=== PATIENT | female | born 1970 | race Caucasian/White ===

== ENCOUNTER 2023-07-20 14:43 | Emergency (ER) | payer OTHER, SELFPAY ==
[2023-07-20 14:48] VITALS: BP 128/73
--- NOTE | 2023-07-20 15:05 | ED.GENMED ---
History of Present Illness
General
Chief Complaint: Rabies
Source: patient
Exam Limitations: none
Time Seen by Provider: 07/20/23 14:53
Nursing documentation reviewed up to this point in time: agreed with
Travel History
Have you had any contact with someone who has COVID-19?: No
Do you have any symptoms of coronavirus? Fever > 100 degrees, chills, cough, shortness of breath, sore throat, loss of taste or smell, muscle aches, or headache?: No
History of Present Illness
History of Present Illness:
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
off with her teeth is requesting rabies immunization 'just in case.' There was no bite or scratch, she simply put her teeth around one of the fingertips of the glove and pulled it off.
Past History
Past History
ED Past Medical History: None
ED Past Surgical History: Gynecological
Social History
Tobacco: Non-smoker
Alcohol: Occasional
Personal: Single
Employment: Employed
Review of Systems
Review of Systems
Allergies reviewed?: Yes
All Other Systems: ROS reviewed and negative except as documented in HPI and ROS
Skin: Reports no symptoms
Phy Exam
Physical Exam
Physical Exam:
PHYSICAL EXAMINATION:
General: no apparent distress, not acutely ill
Neuro: alert and oriented.
Psychiatric: well kept. interactive and cooperative
Musculoskeletal: Moves with ease
Skin: Warm, pink.
Course
Vital Signs
Initial and Last Documented VS:
Initial Vital Signs
Temp Pulse Resp BP Pulse Ox
98.7 F 70 20 128/73 100
07/20/23 14:48 07/20/23 14:48 07/20/23 14:48 07/20/23 14:48 07/20/23 14:48
Last Documented Vital Signs
Temp Pulse Resp BP Pulse Ox
98.7 F 70 20 128/73 100
07/20/23 14:48 07/20/23 14:48 07/20/23 14:48 07/20/23 14:48 07/20/23 14:48
MDM/Problems Addressed
MDM/Problems Addressed:
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
off with her teeth is requesting rabies immunization 'just in case.' There was no bite or scratch, she simply put her teeth around one of the fingertips of the glove and pulled it off.
Explained to patient that rabies immunization is not clinically indicated however since she works at the [employer] it may behoove her to get immunized. She was questioning whether her insurance would pay for it, I told her I had no idea. I
reassured her that she is not at risk at this time for rabies due to this incident.
She is opting to not get immunized at this time and she will call her insurance company tomorrow which is Friday to see if it will be covered.
*Critical Care Note
Total Time (30-74mins, 75-104mins- exclusive of procedures): Not Applicable
ED Attending Note
-
Portions of this chart may have been created with voice recognition software.� Occasional wrong word or��sound alike� substitutions may have occurred due to the inherent limitations of voice recognition software.
Discharge Plan
Departure
Patient Disposition: Home (Routine Discharge)
Date of Disposition: 07/20/23
Time of Disposition: 15:10
Patient with high blood pressure during this ER visit?: No
Condition: Good
Discharge Problem:
Questionable rabies exposure
Activity Restrictions/Additional Instructions:
As we discussed, there is no clinical indication for rabies immunization due to this incident.
You may opt to get immunized anyway since you are working at the [facility].
Call your insurance company if you are concerned about the cost and see if it is covered.
Interventions
Interventions:
*Risk Screen - Suicide Last Done: 07/20/23 15:30
*General Assessment Last Done: 07/20/23 15:30
*Neglect/Abuse Screening Last Done: 07/20/23 15:30
ED- Fall Risk Assessment Last Done: 07/20/23 15:30
*ED COVID-19 Vaccine History Last Done: 07/20/23 15:30
*Nursing Disposition Last Done: 07/20/23 15:30
Discharge Date and Time
Discharge Date/Time: 07/20/23 15:30
Print Language: ARABIC
== END 2023-07-20 15:30 | disposition home or self-care (01) ==
LOC: EMR 14:43
PROVIDERS: EMERGENCY PHYSICIAN Emergency Medicine; FAMILY PHYSICIAN Internal Medicine
DX: Z20.3 Contact with and (suspected) exposure to rabies (principal)
CPT/HCPCS: 99281

== ENCOUNTER → 2023-07-29 06:15 | Outpatient (REF) | payer OTHER, SELFPAY ==
[2023-07-29 09:21] LABS: ALT (SGPT) 13 U/L (0-35); AST (SGOT) 23 U/L (14-36); Albumin 4.5 g/dl (3.5-5.0); Alkaline Phosphatase 59 U/L (38-126); Blood Urea Nitrogen 21 mg/dl (7-17); Calcium 9.8 mg/dl (8.4-10.2); Carbon Dioxide 28 mmol/L (22-30); Chloride 105 mmol/L (98-107); Glucose 89 mg/dl (70-99); Sodium 140 mmol/L (135-145); Total Bilirubin 0.8 mg/dl (0.2-1.3); Total Protein 6.6 g/dl (6.3-8.2); eGFR > 60.00
[2023-07-29 09:28] LABS: Potassium 3.8 mmol/L (3.5-5.1)
[2023-07-29 09:31] LABS: Intact PTH 38.3 pg/ml (13.6-85.8)
[2023-07-29 10:02] LABS: Vitamin D, 25-OH*** 52.6 ng/mL (30-80)
[2023-07-29 10:16] LABS: TSH 1.86 uIU/ml (0.47-4.68)
[2023-07-30 19:58] LABS: CTx 413 pg/mL
== END ==
LOC: HWRAD 06:15
PROVIDERS: ATTENDING PHYSICIAN Internal Medicine Endocrinology, Diabetes & Metabolism; FAMILY PHYSICIAN Internal Medicine
DX: E04.2 Nontoxic multinodular goiter (principal); M81.0 Age-related osteoporosis without current pathological fracture
CPT/HCPCS: 36415; 76536; 80053; 82306; 82523; 83970; 84100; 84443

== ENCOUNTER → 2023-08-07 08:44 | Outpatient (REF) | payer OTHER, SELFPAY ==
[2023-08-07 13:27] LABS: 24 Hour Urine Calcium 243.2 mg/day; 24 Hour Urine Creatinine 1.054 gm/day (0.8-1.8); 24 Hour Urine Total Volume 1900 ml; Urine Calcium 12.8 mg/dl
== END ==
LOC: HWLAB 08:44
PROVIDERS: ATTENDING PHYSICIAN Internal Medicine Endocrinology, Diabetes & Metabolism; FAMILY PHYSICIAN Internal Medicine
DX: M81.0 Age-related osteoporosis without current pathological fracture (principal)
CPT/HCPCS: 81050; 82340; 82570

== ENCOUNTER → 2023-08-14 08:36 | Outpatient (REF) | payer OTHER, SELFPAY ==
[2023-08-16 19:09] LABS: Endomysial IgA Antibody Titer <1:10 (<1:10)
[2023-08-19 14:11] LABS: IgA 114 mg/dl (70-400)
[2023-08-19 15:37] LABS: IgA 127 mg/dL (68-408); IgG 588 mg/dL (768-1632); IgM 72 mg/dL (35-263)
[2023-08-19 18:53] LABS: Albumin 4.42 g/dL (3.75-5.01); Alpha 1 Globulin 0.28 g/dL (0.19-0.46); Alpha 2 Globulin 0.63 g/dL (0.48-1.05); SPEP IFE Reflex IFE Done; Total Protein-Electrophoresis 6.6 g/dL (6.3-8.2)
[2023-08-20 14:41] LABS: tTG IgG Antibody 6.8 EU/ml (0-19)
== END ==
LOC: HWLAB 08:36
PROVIDERS: ATTENDING PHYSICIAN Internal Medicine Endocrinology, Diabetes & Metabolism; FAMILY PHYSICIAN Internal Medicine
DX: M81.0 Age-related osteoporosis without current pathological fracture (principal)
CPT/HCPCS: 36415; 82784; 83516; 84155; 84165; 86231; 86334

== ENCOUNTER → 2023-09-29 15:39 | Outpatient (REF) | payer OTHER, SELFPAY ==
[2023-09-29 17:32] LABS: % Basophils 0.5 % (0-2); % Eosinophils 0.7 % (0-6); % Immature Granulocytes 0.2 % (0-0.5); % Lymphocytes 37.5 % (20.5-51.1); % Monocytes 4.8 % (1.7-9.3); % Neutrophils 56.3 % (42.2-75.2); Absolute Eosinophils 0.1 10^3/uL (0-0.7); Absolute Monocytes 0.4 10^3/uL (0.1-0.6); Absolute Neutrophils 4.6 10^3/uL (1.4-6.5); Hematocrit 35.4 % (37.0-47.0); Hemoglobin 12.1 g/dL (12.0-16.0); Mean Corp Hgb Conc. 34.2 g/dL (33.0-37.0); Mean Corpuscular Hgb 30.9 pg (27.0-31.0); Mean Corpuscular Volume 90.5 fL (81.0-99.0); Mean Platelet Volume 10.5 fL (7.4-10.4); Nucleated Red Blood Cells % 0 %; Platelet Count 303 10^3/uL (130-400); Red Blood Cell Count 3.91 10^6/uL (4.20-5.40); Red Cell Dist. Width 12.8 % (11.5-14.5); White Blood Cell Count 8.1 10^3/uL (4.8-10.8)
== END ==
LOC: REG 15:39
PROVIDERS: ATTENDING PHYSICIAN Nurse Practitioner Family; FAMILY PHYSICIAN Internal Medicine
DX: M81.0 Age-related osteoporosis without current pathological fracture (principal); E04.2 Nontoxic multinodular goiter
CPT/HCPCS: 36415; 85025

== ENCOUNTER 2023-12-03 08:28 | Emergency (ER) | payer OTHER, SELFPAY ==
[2023-12-03 08:32] VITALS: BP 149/74
--- NOTE | 2023-12-03 08:52 | EDRN ---
Dr. Bonilla in room w/pt at this time.
[2023-12-03 08:54] VITALS: BMI 22.9
--- NOTE | 2023-12-03 09:00 | ED.SKININJ ---
HPI-Injury
General
Chief Complaint: Bite
Source: patient
Exam Limitations: none
Time Seen by Provider: 12/03/23 08:46
Nursing documentation reviewed up to this point in time: agreed with
History of Present Illness-Injury
Is this injury a work related problem?: No
Initial Injury comments:
53-year-old female with no chronic medical issues presents for evaluation after bite/scratch from a squirrel. Patient reports that she was walking her dogs and they came into contact with a squirrel that appeared to be unhealthy�she says that the
squirrel was contorted and appeared ill. She says that she tried to shoo the squirrel away and she sustained a minor mahendra/scratch on her finger. She says that it barely broke skin and she is unsure whether it was a bite or a scratch, decided to
come to the emergency room for rabies prophylaxis. She did vigorously wash the area at home. She denies any other complaints. She has never had rabies prophylaxis before. She is unsure of her last tetanus shot.
Past History
Past History
ED Past Medical History: None
ED Past Surgical History: Gynecological
Social History
Tobacco: Non-smoker
Alcohol: Occasional
Personal: Single
Employment: Employed
Review of Systems
Review of Systems
All Other Systems: ROS reviewed and negative except as documented in HPI and ROS
Skin: Reports other (Minor scratch)
Phy Exam
Physical Exam
Physical Exam:
General: Well appearing and non-toxic
HEENT: protecting airway
Neck: appears supple
CV: No evidence of cyanosis
Resp: No accessory muscle use
Abd: Non-distended
Extremities: No deformities
Neuro: Alert
Psych: Normal affect
Skin: On patient's right index finger just over the dorsum of the MCP joint she has tiny punctate break in the skin not bleeding, superficial
Scores
Heart Failure Risk
Heart Failure Risk Score: Not Applicable
Heart Score for Chest Pain Patients
STEMI patient?: Not applicable
Withdrawal Assessment of Alcohol
Withdrawal Assessment Completed?: Not applicable
Course
Orders/Labs/Results
Orders:
Orders
12/03/23 08:59
Tetanus/Diphth/Acelpertussis [Adacel] 0.5 ml IM .ONCE ONE
12/03/23 09:02
Rabies Immune Globulin/Pf [HyperRAB] 1,248 unit IM NOW STA
12/03/23 09:15
Rabies Vaccine (Pcec)/Pf [Rabavert Rabies Vacc W-Diluent] 2.5 unit IM .ONCE ONE
Vital Signs
Initial and Last Documented VS:
Initial Vital Signs
Temp Pulse Resp BP Pulse Ox
36.7 C 71 16 149/74 99
12/03/23 08:32 12/03/23 08:32 12/03/23 08:32 12/03/23 08:32 12/03/23 08:32
Last Documented Vital Signs
Temp Pulse Resp BP Pulse Ox
36.7 C 71 16 149/74 99
12/03/23 08:32 12/03/23 08:32 12/03/23 08:32 12/03/23 08:32 12/03/23 08:32
MDM/Problems Addressed
Differential Diagnosis Includes:
Rabies exposure
MDM/Problems Addressed:
53-year-old female presents after exposure to a sick squirrel, bite/scratch to her finger. Irrigated wound at home and came to ER for evaluation for possible rabies exposure. Unsure of her last tetanus. No prior history of rabies vaccination.
Will update tetanus. Will provide rabies immunoglobulin and vaccination series. Very superficial break in the skin (barely broke skin), no clear indication for antibiotic treatment at this time but advised to monitor area closely for signs of
infection and return if any redness, swelling, pain, drainage. Patient indicated understanding. All questions answered.
*Pulse Oximetry
Patient hypoxic: no
*Critical Care Note
Total Time (30-74mins, 75-104mins- exclusive of procedures): Not Applicable
Data Reviewed
Source: patient
ED Attending Note
-
Portions of this chart may have been created with voice recognition software.� Occasional wrong word or��sound alike� substitutions may have occurred due to the inherent limitations of voice recognition software.
Discharge Plan
Departure
Patient Disposition: Home (Routine Discharge)
Date of Disposition: 12/03/23
Time of Disposition: 09:05
Patient with high blood pressure during this ER visit?: Yes
Discharge Problem:
Animal bite of finger
Instructions: Animal Bites (DC), Rabies
Prescriptions:
New
RabAvert (PF) 2.5 unit Suspension For Reconstitution
1 ml IM . DIRECTED Qty: 3 0RF
Rx Instructions:
See Rabies Vaccine Post Exposure Prophylaxis Instruction Sheet for Dosing Instructions
Stand Alone Forms: Rabies Vaccine Post Exp Dosing
Activity Restrictions/Additional Instructions:
Thank you for visiting the Emergency Department at [facility].
1. Please schedule a follow up appointment as directed. Call first thing tomorrow morning to make an appointment.
2. If indicated, please take your medications as instructed and indicated on discharge paperwork.
3. If any of your symptoms do not improve, or persist, or become more severe within 6-12 hours, please return to the emergency department for further care.
4. Please return to the emergency department if you develop a headache, neck pain/stiffness, fever greater than 100.4F, chest pain, shortness of breath, persistent nausea, vomiting, slurred speech, difficulty walking, numbness/tingling, weakness,
signs of infection or any other symptoms that are worrisome to you.
Please call [phone] if you have any questions.
Interventions
Interventions:
*Risk Screen - Suicide Last Done: 12/03/23 08:55
*General Assessment Last Done: 12/03/23 08:55
*Neglect/Abuse Screening Last Done: 12/03/23 08:55
ED- Fall Risk Assessment Last Done: 12/03/23 08:55
*ED COVID-19 Vaccine History Last Done: 12/03/23 08:55
ED-Skin Assessment Last Done: 12/03/23 08:55
Discharge Date and Time
Print Language: JORDANIAN
--- NOTE | 2023-12-03 09:01 | EDRN ---
Pharmacy called to send rabies immunglobulin and vaccine
[2023-12-03] MEDS: ADACEL 0.5 ML IM (09:25)
[2023-12-03] MEDS: RABAVERT RABIES VACC W-DILUENT 2.5 UNIT IM (09:26)
[2023-12-03] MEDS: HyperRAB 1248 UNIT IM (09:28)
== END 2023-12-03 09:45 | disposition home or self-care (01) ==
LOC: EMR 08:28
PROVIDERS: EMERGENCY PHYSICIAN Emergency Medicine; FAMILY PHYSICIAN Internal Medicine
DX: Z20.3 Contact with and (suspected) exposure to rabies (principal); Z23 Encounter for immunization; W53.21XA Bitten by squirrel, initial encounter
CPT/HCPCS: 99282; 90471; 96372; 90375; 90675; 90715

== ENCOUNTER 2023-12-06 08:58 | Emergency (ER) | payer OTHER, SELFPAY ==
[2023-12-06 09:09] VITALS: BP 127/82
--- NOTE | 2023-12-06 09:23 | ED.GENMED ---
History of Present Illness
General
Chief Complaint: Rabies
Source: patient and records
Time Seen by Provider: 12/06/23 09:17
History of Present Illness
History of Present Illness:
53yoF presenting for her second rabies vaccine. The rabies vaccine series was started on 12/03/23 after she was scratched/bitten by a flying squirrel on her right finger. She tolerated the first vaccine without any issues. She is asymptomatic without
other complaints.
Past History
Past History
ED Past Medical History: None
ED Past Surgical History: Gynecological
Social History
Tobacco: Non-smoker
Alcohol: Occasional
Personal: Single
Employment: Employed
Phy Exam
General Physical Exam
General Presentation: well appearing and no apparent distress
General age: appears stated age
General Skin: warm and dry
General Habitus: normal
General Mental: alert
Pulmonary Exam
Pulmonary Exam: no respiratory distress
[place] Coma Scale
Eye Opening: Spontaneous
Verbal Response: Oriented
Motor Response: Obeys Commands
GCS Total Score: 15
Musculoskeletal Exam
Musculoskeletal Exam: full ROM and other (No wound noted to R index finger. No signs of infection. )
Skin Exam
Skin Exam: normal color and warm/dry
Psychiatric Exam
Psychiatric Exam: normal mood/affect
Course
Orders/Labs/Results
Orders:
Orders
12/06/23 09:45
Rabies Vaccine (Pcec)/Pf [Rabavert Rabies Vacc W-Diluent] 2.5 unit IM .ONCE ONE
Vital Signs
Initial and Last Documented VS:
Initial Vital Signs
Temp Pulse Resp BP Pulse Ox
98.4 F 75 16 127/82 98
12/06/23 09:09 12/06/23 09:09 12/06/23 09:09 12/06/23 09:09 12/06/23 09:09
Last Documented Vital Signs
Temp Pulse Resp BP Pulse Ox
98.4 F 75 16 127/82 98
12/06/23 09:09 12/06/23 09:09 12/06/23 09:09 12/06/23 09:09 12/06/23 09:09
MDM/Problems Addressed
Differential Diagnosis Includes:
53yoF here for her 2nd rabies vaccine after being scratched by a flying squirrel. She is asymptomatic with normal vitals. No wound or signs of infection present on exam. Will order second rabies vaccine.
Patient also requesting to have a new prescription for her 3rd rabies vaccine at the infusion center. Patient is scheduled for her third rabies vaccine on 12/10/23 but she is leaving for a trip to [place] on the evening of 12/09/23 and would like to
get the rabies vaccine a day early. She spoke with the infusion center who needed a new prescription to reflect this. New prescription provided. She has arranged [place] get [place] 4th [place]
*Critical Care Note
Total Time (30-74mins, 75-104mins- exclusive of procedures): Not Applicable
ED Attending Note
-
Portions of this chart may have been created with voice recognition software.� Occasional wrong word or��sound alike� substitutions may have occurred due to the inherent limitations of voice recognition software.
Discharge Plan
Departure
Patient Disposition: Home (Routine Discharge)
Date of Disposition: 12/06/23
Time of Disposition: 09:31
Patient with high blood pressure during this ER visit?: No
Discharge Problem:
Encounter for repeat administration of rabies vaccination
Prescriptions:
New
RabAvert (PF) 2.5 unit suspension for reconstitution
2.5 unit IM ONCE Qty: 1 0RF
Rx Instructions:
Administer on either 12/09/23 or 12/10/23.
No Action
RabAvert (PF) 2.5 unit Suspension For Reconstitution
1 ml IM . DIRECTED Qty: 3 0RF
Rx Instructions:
See Rabies Vaccine Post Exposure Prophylaxis Instruction Sheet for Dosing Instructions
Activity Restrictions/Additional Instructions:
Please call the infusion center on Friday to schedule your next vaccine.
Interventions
Interventions:
*Risk Screen - Suicide Last Done: 12/06/23 10:00
*General Assessment Last Done: 12/06/23 10:00
*Neglect/Abuse Screening Last Done: 12/06/23 10:00
ED- Fall Risk Assessment Last Done: 12/06/23 10:04
*ED COVID-19 Vaccine History Last Done: 12/06/23 10:00
*Nursing Disposition Last Done: 12/06/23 10:04
Discharge Date and Time
Discharge Date/Time: 12/06/23 10:05
Print Language: FAROESE
[2023-12-06] MEDS: RABAVERT RABIES VACC W-DILUENT 2.5 UNIT IM (09:58)
== END 2023-12-06 10:05 | disposition home or self-care (01) ==
LOC: EMR 08:58
PROVIDERS: EMERGENCY PHYSICIAN Student in an Organized Health Care Education/Training Program; FAMILY PHYSICIAN Internal Medicine
DX: Z23 Encounter for immunization (principal); Z20.3 Contact with and (suspected) exposure to rabies; Z91.013 Allergy to seafood
CPT/HCPCS: 99281; 90471; 90675

== ENCOUNTER 2023-12-09 10:49 | Outpatient (RCR) | payer OTHER, SELFPAY ==
[2023-12-09 11:03] VITALS: BP 118/72
[2023-12-09] MEDS: RABAVERT RABIES VACC W-DILUENT 2.5 UNIT IM (11:08)
== END 2023-12-10 08:29 | disposition home or self-care (01) ==
LOC: OID 10:49
PROVIDERS: ATTENDING PHYSICIAN Emergency Medicine; FAMILY PHYSICIAN Internal Medicine
DX: Z20.3 Contact with and (suspected) exposure to rabies (principal); Z23 Encounter for immunization
CPT/HCPCS: 90471; 90675